=== PATIENT | male | born 1985 | race Caucasian/White ===

== ENCOUNTER 2024-08-06 11:51 | Day surgery (SDC) | payer OTHER, SELFPAY ==
[2024-08-06] VITALS (12 sets, daily range): BP systolic 127–160; BP diastolic 72–97; BMI 28.2
--- NOTE | 2024-08-06 08:10 | ED.GENMED ---
History of Present Illness
<Kade Rios, DO - Last Filed: 08/06/24 11:17>
General
Chief Complaint: Abdominal Symptoms
Time Seen by Provider: 08/06/24 07:45
<Libertad Larkin MD, Resident - Last Filed: 08/06/24 13:25>
History of Present Illness
History of Present Illness:
This is a 39-year-old male who presents to the ED complaining of epigastric pain that started at 230 this a.m. Patient reports pain is an 8 out of 10 that does not radiate anywhere. He reports it is a sharp pain. He reports nausea, but denies
vomiting. He denies fever, chills. Movement makes it worse, nothing makes it better. He used Pepto this morning but symptoms did not resolve. He denies diarrhea, denies constipation. He has had no abdominal surgeries. His last meal was 5 PM
yesterday. He denies fever, chills.
Past History
<Kade Rios, DO - Last Filed: 08/06/24 11:17>
Past History
ED Past Medical History: None
ED Past Surgical History: None
<Libertad Larkin MD, Resident - Last Filed: 08/06/24 13:25>
Social History
Tobacco: Non-smoker
Alcohol: None
Drug: None
Phy Exam
<Libertad Larkin MD, Resident - Last Filed: 08/06/24 13:25>
General Physical Exam
General Presentation: well appearing and moderate distress
General Mental: alert
Cardiovascular Exam
Cardiovascular Exam: regular rate/rhythm, no edema and no murmur
Pulmonary Exam
Pulmonary Exam: lungs clear and no respiratory distress
Gastrointestinal Exam
Gastrointestinal Exam: normal bowel sounds, soft, non distended and tender (Tenderness in epigastric region on palpation of abdomen)
Neurological Exam
Neurological Exam: alert and oriented x3
Skin Exam
Skin Exam: normal color
Psychiatric Exam
Psychiatric Exam: normal mood/affect
Course
<Kade Rios, DO - Last Filed: 08/06/24 11:17>
Orders/Labs/Results
Orders:
Orders
08/06/24 Breakfast
NPO
Allow oral meds: Yes
Allow clear liquids: No
08/06/24 07:37
Electrocardiogram (*1) Urgent
Reason for Study: Abdominal Pain
EKG- Treatment ONCE
08/06/24 08:01
Ondansetron Injectable [Zofran] 4 mg IV NOW STA
08/06/24 08:07
Morphine Sulfate 4 mg IV NOW STA
Pantoprazole [Protonix IV] 40 mg IV NOW STA
08/06/24 08:08
US Abdomen Complete/Upper Urgent
Comment:
Reason For Exam: abdominal pain
08/06/24 08:09
Lactated Ringers [Lr] 1,000 ml IV BOLUS
08/06/24 08:12
IV Insert/Care/Rem.- Treatment PRN
08/06/24 08:35
Complete Blood Count/With Diff Urgent
Comprehensive Metabolic Panel Urgent
Lipase Urgent
08/06/24 10:44
Morphine Sulfate 4 mg .ROUTE .STK-MED ONE
08/06/24 10:51
Morphine Sulfate 4 mg IV NOW STA
08/06/24 10:52
Urinalysis Reflex To Culture Urgent
Date Specimen was Collected: 08/06/24
Time Specimen was Collected: 10:50
08/06/24 10:53
HYDROmorphone [Dilaudid] 0.25 mg IV PACU-Q5MPRN PRN
HYDROmorphone [Dilaudid] 0.5 mg IV PACU-Q5MPRN PRN
Meperidine [Demerol] 12.5 mg IV PACU-Q5MPRN PRN
Ondansetron Injectable [Zofran] 4 mg IV PACU-ONCEPRN PRN
Prochlorperazine [Compazine] 5 mg IV PACU-ONCEPRN PRN
08/06/24 10:54
Notify MD As Directed
Notify physician if: for SDS patients with known or suspected sleep obstructive sleep apnea, monitor in the
PACU.
Notify MD for any apneic/desaturation episodes
O2 Therapy [RESP] Urgent
Titrate/Wean O2 to maintain O2 sat greater than (%): 92
Special Instructions: -Provide supplemental oxygen to achieve O2 sat of 92% or greater.
-After 15 min, may wean O2 and discontinue if patient is able to maintain O2 sat of 92%
or greater during recovery period.
If patient is a discharge home, without oxygen therapy, notify anestheiologist if
unable to maintain O2 SAT of 92% or greater on room air for MD clearance.
08/06/24 10:56
HYDROmorphone [Dilaudid] 0.25 mg IV PACU-Q5MPRN PRN
HYDROmorphone [Dilaudid] 0.5 mg IV PACU-Q5MPRN PRN
Meperidine [Demerol] 12.5 mg IV PACU-Q5MPRN PRN
Ondansetron Injectable [Zofran] 4 mg IV PACU-ONCEPRN PRN
Prochlorperazine [Compazine] 5 mg IV PACU-ONCEPRN PRN
Notify MD As Directed
Notify physician if: for SDS patients with known or suspected sleep obstructive sleep apnea, monitor in the
PACU.
Notify MD for any apneic/desaturation episodes
O2 Therapy [RESP] Urgent
Titrate/Wean O2 to maintain O2 sat greater than (%): 92
Special Instructions: -Provide supplemental oxygen to achieve O2 sat of 92% or greater.
-After 15 min, may wean O2 and discontinue if patient is able to maintain O2 sat of 92%
or greater during recovery period.
If patient is a discharge home, without oxygen therapy, notify anestheiologist if
unable to maintain O2 SAT of 92% or greater on room air for MD clearance.
08/06/24 11:00
Normosol (Mult Electrolytes) [Normosol-R/Plasmalyte-A] 1,000 ml IV PER PROTOCOL
Normosol (Mult Electrolytes) [Normosol-R/Plasmalyte-A] 1,000 ml IV PER PROTOCOL
08/06/24 11:11
HYDROmorphone [Dilaudid] 0.5 mg IV NOW STA
HYDROmorphone [Dilaudid] 0.5 mg IV NOW STA
08/06/24 11:12
Sequential Compression Device [Pneumatic Compression Sleeves] As Directed
Type: Knee high
DX Deep Vein Thrombosis Video Routine
08/06/24 11:16
CefoTEtan [Cefotan] 2,000 mg IV NOW STA
08/06/24 11:39
Sterile Water [Sterile Water For Injection] 10 ml IV NOW STA
08/06/24 11:45
Normosol (Mult Electrolytes) [Normosol-R/Plasmalyte-A] 1,000 ml IV PER PROTOCOL
08/06/24 11:52
HYDROmorphone [Dilaudid] 0.25 mg IV PACU-Q5MPRN PRN
HYDROmorphone [Dilaudid] 0.5 mg IV PACU-Q5MPRN PRN
Meperidine [Demerol] 12.5 mg IV PACU-Q5MPRN PRN
Ondansetron Injectable [Zofran] 4 mg IV PACU-ONCEPRN PRN
Prochlorperazine [Compazine] 5 mg IV PACU-ONCEPRN PRN
08/06/24 11:59
Bupivacaine 0.5%Pf/Epinephrin [Sensorcain-Mpf Epi 0.5%-0.0005] 30 ml .ROUTE .STK-MED ONE
Iohexol [Omnipaque] 50 ml .ROUTE .STK-MED ONE
08/06/24 12:24
Fentanyl Citrate/Pf [Sublimaze] 100 mcg .ROUTE .STK-MED ONE
Midazolam HCl [Versed] 2 mg .ROUTE .STK-MED ONE
08/06/24 12:47
Phenylephrine HCl/0.9% NaCl [Desmond-Synephrine] 1,000 mcg .ROUTE .STK-MED ONE
08/06/24 12:53
OR Pathology Routine
Pre-Operative Diagnosis: ACUTE CHOLECYSTITIS
Post-Operative Diagnosis: SAME
Operative Procedure: LAP RUPAL,CHOLANG
Surgeon: ANABELL
Circulating Nurse: SLADE
Specimen Type: GALLBLADDER
08/06/24 13:05
HYDROmorphone [Dilaudid] 1 mg .ROUTE .STK-MED ONE
08/06/24 13:16
Dexamethasone Sod Phosphate [Decadron] 20 mg .ROUTE .STK-MED ONE
Lidocaine HCl/Pf [Xylocaine-Mpf 1% Vial] 50 mg .ROUTE .STK-MED ONE
Ondansetron Injectable [Zofran] 4 mg .ROUTE .STK-MED ONE
Propofol [Diprivan] 20 ml .ROUTE .STK-MED
Rocuronium Perris [Rocuronium] 50 mg .ROUTE .STK-MED ONE
Abnormal Lab Results
08/06/24
08:35
WBC 12.3 H 10^3/uL
(4.8-10.8)
Absolute Neuts (auto) 10.9 H 10^3/uL
(1.4-6.5)
Absolute Lymphs (auto) 0.9 L 10^3/uL
(1.2-3.4)
Neutrophils % 88.6 H %
(42.2-75.2)
Lymphocytes % 7.2 L %
(20.5-51.1)
Glucose 128 H mg/dl
(70-99)
08/06/24 08:35
08/06/24 08:35
Vital Signs
Initial and Last Documented VS:
Initial Vital Signs
Temp Pulse Resp BP Pulse Ox
97.7 F 60 16 158/97 98
08/06/24 07:37 08/06/24 07:37 08/06/24 07:37 08/06/24 07:37 08/06/24 07:37
Last Documented Vital Signs
Temp Pulse Resp BP Pulse Ox
97.7 F 76 20 146/72 100
08/06/24 07:37 08/06/24 10:45 08/06/24 10:45 08/06/24 10:01 08/06/24 10:45
<Libertad Larkin MD, Resident - Last Filed: 08/06/24 13:25>
Orders/Labs/Results
Orders:
Orders
08/06/24 Breakfast
NPO
Allow oral meds: Yes
Allow clear liquids: No
08/06/24 07:37
Electrocardiogram (*1) Urgent
Reason for Study: Abdominal Pain
EKG- Treatment ONCE
08/06/24 08:01
Ondansetron Injectable [Zofran] 4 mg IV NOW STA
08/06/24 08:07
Morphine Sulfate 4 mg IV NOW STA
Pantoprazole [Protonix IV] 40 mg IV NOW STA
08/06/24 08:08
US Abdomen Complete/Upper Urgent
Comment:
Reason For Exam: abdominal pain
08/06/24 08:09
Lactated Ringers [Lr] 1,000 ml IV BOLUS
08/06/24 08:12
IV Insert/Care/Rem.- Treatment PRN
08/06/24 08:35
Complete Blood Count/With Diff Urgent
Comprehensive Metabolic Panel Urgent
Lipase Urgent
08/06/24 10:44
Morphine Sulfate 4 mg .ROUTE .STK-MED ONE
08/06/24 10:51
Morphine Sulfate 4 mg IV NOW STA
08/06/24 10:52
Urinalysis Reflex To Culture Urgent
Date Specimen was Collected: 08/06/24
Time Specimen was Collected: 10:50
08/06/24 10:53
HYDROmorphone [Dilaudid] 0.25 mg IV PACU-Q5MPRN PRN
HYDROmorphone [Dilaudid] 0.5 mg IV PACU-Q5MPRN PRN
Meperidine [Demerol] 12.5 mg IV PACU-Q5MPRN PRN
Ondansetron Injectable [Zofran] 4 mg IV PACU-ONCEPRN PRN
Prochlorperazine [Compazine] 5 mg IV PACU-ONCEPRN PRN
08/06/24 10:54
Notify MD As Directed
Notify physician if: for SDS patients with known or suspected sleep obstructive sleep apnea, monitor in the
PACU.
Notify MD for any apneic/desaturation episodes
O2 Therapy [RESP] Urgent
Titrate/Wean O2 to maintain O2 sat greater than (%): 92
Special Instructions: -Provide supplemental oxygen to achieve O2 sat of 92% or greater.
-After 15 min, may wean O2 and discontinue if patient is able to maintain O2 sat of 92%
or greater during recovery period.
If patient is a discharge home, without oxygen therapy, notify anestheiologist if
unable to maintain O2 SAT of 92% or greater on room air for MD clearance.
08/06/24 10:56
HYDROmorphone [Dilaudid] 0.25 mg IV PACU-Q5MPRN PRN
HYDROmorphone [Dilaudid] 0.5 mg IV PACU-Q5MPRN PRN
Meperidine [Demerol] 12.5 mg IV PACU-Q5MPRN PRN
Ondansetron Injectable [Zofran] 4 mg IV PACU-ONCEPRN PRN
Prochlorperazine [Compazine] 5 mg IV PACU-ONCEPRN PRN
Notify MD As Directed
Notify physician if: for SDS patients with known or suspected sleep obstructive sleep apnea, monitor in the
PACU.
Notify MD for any apneic/desaturation episodes
O2 Therapy [RESP] Urgent
Titrate/Wean O2 to maintain O2 sat greater than (%): 92
Special Instructions: -Provide supplemental oxygen to achieve O2 sat of 92% or greater.
-After 15 min, may wean O2 and discontinue if patient is able to maintain O2 sat of 92%
or greater during recovery period.
If patient is a discharge home, without oxygen therapy, notify anestheiologist if
unable to maintain O2 SAT of 92% or greater on room air for MD clearance.
08/06/24 11:00
Normosol (Mult Electrolytes) [Normosol-R/Plasmalyte-A] 1,000 ml IV PER PROTOCOL
Normosol (Mult Electrolytes) [Normosol-R/Plasmalyte-A] 1,000 ml IV PER PROTOCOL
08/06/24 11:11
HYDROmorphone [Dilaudid] 0.5 mg IV NOW STA
HYDROmorphone [Dilaudid] 0.5 mg IV NOW STA
08/06/24 11:12
Sequential Compression Device [Pneumatic Compression Sleeves] As Directed
Type: Knee high
DX Deep Vein Thrombosis Video Routine
08/06/24 11:16
CefoTEtan [Cefotan] 2,000 mg IV NOW STA
08/06/24 11:39
Sterile Water [Sterile Water For Injection] 10 ml IV NOW STA
08/06/24 11:45
Normosol (Mult Electrolytes) [Normosol-R/Plasmalyte-A] 1,000 ml IV PER PROTOCOL
08/06/24 11:52
HYDROmorphone [Dilaudid] 0.25 mg IV PACU-Q5MPRN PRN
HYDROmorphone [Dilaudid] 0.5 mg IV PACU-Q5MPRN PRN
Meperidine [Demerol] 12.5 mg IV PACU-Q5MPRN PRN
Ondansetron Injectable [Zofran] 4 mg IV PACU-ONCEPRN PRN
Prochlorperazine [Compazine] 5 mg IV PACU-ONCEPRN PRN
08/06/24 11:59
Bupivacaine 0.5%Pf/Epinephrin [Sensorcain-Mpf Epi 0.5%-0.0005] 30 ml .ROUTE .STK-MED ONE
Iohexol [Omnipaque] 50 ml .ROUTE .STK-MED ONE
08/06/24 12:24
Fentanyl Citrate/Pf [Sublimaze] 100 mcg .ROUTE .STK-MED ONE
Midazolam HCl [Versed] 2 mg .ROUTE .STK-MED ONE
08/06/24 12:47
Phenylephrine HCl/0.9% NaCl [Desmond-Synephrine] 1,000 mcg .ROUTE .STK-MED ONE
08/06/24 12:53
OR Pathology Routine
Pre-Operative Diagnosis: ACUTE CHOLECYSTITIS
Post-Operative Diagnosis: SAME
Operative Procedure: LAP RUPAL,CHOLANG
Surgeon: ANABELL
Circulating Nurse: SLADE
Specimen Type: GALLBLADDER
08/06/24 13:05
HYDROmorphone [Dilaudid] 1 mg .ROUTE .STK-MED ONE
08/06/24 13:16
Dexamethasone Sod Phosphate [Decadron] 20 mg .ROUTE .STK-MED ONE
Lidocaine HCl/Pf [Xylocaine-Mpf 1% Vial] 50 mg .ROUTE .STK-MED ONE
Ondansetron Injectable [Zofran] 4 mg .ROUTE .STK-MED ONE
Propofol [Diprivan] 20 ml .ROUTE .STK-MED
Rocuronium Perris [Rocuronium] 50 mg .ROUTE .STK-MED ONE
Abnormal Lab Results
08/06/24
08:35
WBC 12.3 H 10^3/uL
(4.8-10.8)
Absolute Neuts (auto) 10.9 H 10^3/uL
(1.4-6.5)
Absolute Lymphs (auto) 0.9 L 10^3/uL
(1.2-3.4)
Neutrophils % 88.6 H %
(42.2-75.2)
Lymphocytes % 7.2 L %
(20.5-51.1)
Glucose 128 H mg/dl
(70-99)
08/06/24 08:35
08/06/24 08:35
Vital Signs
Initial and Last Documented VS:
Initial Vital Signs
Temp Pulse Resp BP Pulse Ox
97.7 F 60 16 158/97 98
08/06/24 07:37 08/06/24 07:37 08/06/24 07:37 08/06/24 07:37 08/06/24 07:37
Last Documented Vital Signs
Temp Pulse Resp BP Pulse Ox
97.7 F 76 20 146/72 100
08/06/24 07:37 08/06/24 10:45 08/06/24 10:45 08/06/24 10:01 08/06/24 10:45
<Libertad Larkin MD, Resident - Last Filed: 08/06/24 13:25>
MDM/Problems Addressed
MDM/Problems Addressed:
This is a 39-year-old male who presents with epigastric abdominal pain. Physical examination with tenderness in the epigastric region. Denies chest pain. EKG was unremarkable. Possible etiology gastritis versus pancreatitis versus gallbladder
pathology. Will start patient on for morphine, Zofran, 1L LR, Protonix. Evaluate with ultrasound abdomen
<Kade Rios DO - Last Filed: 08/06/24 11:17>
*Critical Care Note
Total Time (30-74mins, 75-104mins- exclusive of procedures): 31
comment:
Critical care statement: A total of 31 minutes of critical care time was provided for this patient. This includes management of unstable vital signs, evaluation of the patient at bedside, reviewing the patient's pertinent medical records, discussion
with consultants, review of old EKGs and review of pertinent medical records. This time with separate from time utilized to perform the aforementioned documented procedures
Patient taken directly to the OR for urgent cholecystectomy
ED Attending Note
<Kade Rios, - Last Filed: 08/06/24 11:17>
ED Attending Note
Patient seen and examined by attending physician: Yes
I performed a history and physical exam of patient and discussed management with resident, I reviewed resident's note and agree with documented findings and plan of care.: Yes
ED Attending Note:
I reviewed and agree with history and treatment plan by Libertad Larkin MD. My exam revealed
Physical Exam
General: Appears uncomfortable, afebrile
Neck: supple. no meningeal signs. normal posterior pharynx
Heart: s1/s2 regular rate and rhythm, no murmur. equal radial
pulses.
HEENT: Pupils equal round reactive to light, EOMI
Lungs: no acute respiratory distress. clear bilaterally
Abdomen: normal bowel sounds. Epigastric and right upper quadrant tenderness, no rebound or guarding. No CVAT
Neuro: alert and oriented. no focal neurological deficits
Skin: no rash
Psychiatric: well kept. interactive and cooperative
Extremities: no edema. no calf tenderness. negative homans. good distal pulses
39-year-old male with epigastric abdominal pain since 2:30 AM. Concern for pancreatitis versus cholecystitis. Labs and ultrasound pending. Will give 1 L LR, Zofran and morphine.
-
Portions of this chart may have been created with voice recognition software.� Occasional wrong word or��sound alike� substitutions may have occurred due to the inherent limitations of voice recognition software.
Discharge Plan
Departure
Patient Disposition: OR
Date of Disposition: 08/06/24
Time of Disposition: 11:16
Admit to: OR
Presentation/result/management discussed w/ accepting MD/DO: Benjamin Nguyen
Discharge Problem:
Acute cholecystitis
Interventions
Interventions:
*Risk Screen - Suicide Last Done: 08/06/24 07:37
*General Assessment Last Done: 08/06/24 10:55
*Neglect/Abuse Screening Last Done: 08/06/24 07:37
*ED- Fall Risk Assessment Last Done: 08/06/24 10:55
*ED COVID-19 Vaccine History Last Done: 08/06/24 10:55
*Nursing Disposition Last Done: 08/06/24 11:35
CR-Mpdctk-Uyjfxxwawo Assessment Last Done: 08/06/24 10:57
Discharge Date and Time
Discharge Date/Time: 08/06/24 11:35
[2024-08-06] MEDS: LR 1000 IV (08:38)
[2024-08-06] MEDS: ZOFRAN 4 MG IV (08:42)
[2024-08-06] MEDS: MORPHINE SULFATE 4 MG IV ×2 (08:42→10:51)
[2024-08-06] MEDS: PROTONIX IV 40 MG IV (08:42)
[2024-08-06 08:43] LABS: % Basophils 0.4 % (0-2); % Eosinophils 0.2 % (0-6); % Immature Granulocytes 0.3 % (0-0.5); % Lymphocytes 7.2 % (20.5-51.1); % Monocytes 3.3 % (1.7-9.3); % Neutrophils 88.6 % (42.2-75.2); Absolute Basophils 0.1 10^3/uL (0-0.2); Absolute Lymphocytes 0.9 10^3/uL (1.2-3.4); Absolute Monocytes 0.4 10^3/uL (0.1-0.6); Absolute Neutrophils 10.9 10^3/uL (1.4-6.5); Hematocrit 45.1 % (39.0-52.0); Hemoglobin 15.8 g/dL (13.0-18.0); Mean Corpuscular Hgb 29.2 pg (27.0-31.0); Mean Corpuscular Volume 83.4 fL (80.0-94.0); Mean Platelet Volume 8.3 fL (7.4-10.4); Nucleated Red Blood Cells % 0 % (-); Platelet Count 253 10^3/uL (130-400); Red Blood Cell Count 5.41 10^6/uL (4.70-6.10); Red Cell Dist. Width 11.8 % (11.5-14.5); White Blood Cell Count 12.3 10^3/uL (4.8-10.8)
[2024-08-06 08:59] LABS: ALT (SGPT) 28 U/L (0-50); AST (SGOT) 24 U/L (17-59); Albumin 4.9 g/dl (3.5-5.0); Alkaline Phosphatase 71 U/L (38-126); Blood Urea Nitrogen 17 mg/dl (9-20); Calcium 9.4 mg/dl (8.4-10.2); Carbon Dioxide 26 mmol/L (22-30); Chloride 104 mmol/L (98-107); Glucose 128 mg/dl (70-99); Potassium 4.9 mmol/L (3.5-5.1); Sodium 140 mmol/L (135-145); Total Bilirubin 0.6 mg/dl (0.2-1.3); Total Protein 7.7 g/dl (6.3-8.2); eGFR > 60.00
[2024-08-06 11:05] LABS: Urine Albumin Negative (Neg - Trace); Urine Bilirubin Negative (Negative); Urine Character Clear (Clear); Urine Color Yellow; Urine Glucose Negative (Negative); Urine Ketone Negative (Negative); Urine Leukocyte Negative (Negative); Urine Nitrite Negative (Negative); Urine Occult Blood Negative (Negative); Urine Urobilinogen Negative (Neg - 1+)
--- NOTE | 2024-08-06 11:09 | HPS.HSE ---
Addendum entered and electronically signed by Benjamin Nguyen MD 08/06/24 11:46:
I saw and examined the patient independently.
The [employer] Yarder's note was reviewed and I agree with the note, assessment and plan except where noted below.
Comment: This is a 39-year-old male [employer] who presents with a 1 day history of postprandial right upper quadrant pain. Ultrasound, blood work, exam all consistent with acute cholecystitis.
Will plan for a laparoscopic cholecystectomy in the OR today.
N.p.o., IV fluids, IV antibiotics ordered
Risks/Benefits/Alternatives, expected postoperative course and possible complications (bleeding, infection, injury to surrounding structures, acute/chronic pain) discussed at length. Patient wishes to proceed with surgery. All questions answered.
Consent obtained.
I spent 60 minutes in total for the care of this patient today including direct patient care and counseling, reviewing labs, imaging, coordination of care, as well as documentation.
Original Note:
Family Physician
-
Family Physician: Jazlyn Cruz
Chief Complaint
-
epigastric/ruq pain
History of Present Illness
39 yo male with a h/o left Achilles tendon repair who presents with epigastric pain radiating into the RUQ which awoke him from sleep early this am around 0230am. He notes last night, he was feeling well and had a meal of steak with mac and cheese.
He went to bed as usual but was awakened with severe pain which has persisted since that time. He denies n/v but notes he has had chills and sweats. He tried Pepto Bismol at home without relief. He notes that movement does not make it better or
worse. On exam, he is tender to the RUQ.
Medical History
Past Medical History
Past Medical History: Reports None
Past Surgical History: Reports Orthopedic (left achilles tendon repair)
Social History
Tobacco: Non-smoker
Alcohol: None
Personal:
Living: With Family
Employment: Employed ([employer], [employer] fighter pilot)
Family History
Family History: Not pertinent
Allergies / Home Medications
Allergies reflects when Allergies were last updated in [facility].
Home Medications with original date entered in [facility]
Allergy/Medication List:
Patient Allergies
Allergy/AdvReac Type Severity Reaction Status Date / Time
No Known Allergies Allergy Verified 08/06/24 07:42
If medication reconciliation has not been performed, why?: Medication List N/A (no home meds)
Review of Systems
-
History Source: Patient and Family
A 12 point ROS was completed and negative except as noted: Yes
Physical Exam
Vital Signs
Vital Signs
Temp Pulse Resp BP Pulse Ox
97.7 F 76 20 146/72 100
08/06/24 07:37 08/06/24 10:45 08/06/24 10:45 08/06/24 10:01 08/06/24 10:45
Physical Exam
General: Well Developed and Well Nourished; No Comfortable
HEENT: Moist mucous membranes
Respiratory: Non Labored Respirations
GI: Soft, Non Distended and Tender (RUQ)
Skin: Warm and Dry
Neuro: Awake, Alert and AO x 3
Psych: Calm
Laboratory Results
-
08/06/24 08:35
08/06/24 08:35
Laboratory Results
Total Bilirubin 0.6 mg/dl (0.2-1.3) 08/06/24 08:35
AST 24 U/L (17-59) 08/06/24 08:35
ALT 28 U/L (0-50) 08/06/24 08:35
Alkaline Phosphatase 71 U/L (38-126) 08/06/24 08:35
Data Reviewed
-
Ultrasound: Image Personally Visualized and interpreted, Report Reviewed by me, Discussed with Physician, Discussed with Patient and Discussed with Family
Lab Data: Labs Reviewed by me, Discussed with Physician, Discussed with Patient and Discussed with Family
Old Records: Reviewed
Impression/Plan
-
IMPRESSION:
39 yo healthy male presenting with RUQ pain which awakened him from sleep early this morning after a high fat meal last night. US consistent with acute calculous cholecystitis as is history and physical exam. LFTs WNL, mildly elevated leukocytosis.
Afebrile with stable vital signs.
PLAN:
NPO for surgery today for laparoscopic cholecystectomy
Cefotetan 2gm preop
Analgesics prn
SCDs for VTE ppx perioperatively
--- NOTE | 2024-08-06 11:43 | W.SUR.PREOP ---
Pre-Operative Surgical Note
-
I have examined this patient prior to the performance of the scheduled procedure.
The patient's condition is unchanged from the time of the current History and
Physical and the patient is able to undergo the scheduled procedure.
[2024-08-06 11:57] LABS: Lipase 95 U/L (23-300)
--- NOTE | 2024-08-06 13:59 | W.IMMPOSTOP ---
Surgical Immed Post Op Note
-
Primary Surgeon: Benjamin Nguyen MD
Assisting Surgeon: None
Pre-op Diagnosis: Acute cholecystitis
Post-op Diagnosis: Same
Procedure Performed: Laparoscopic cholecystectomy with cholangiogram
Anesthesia Type: General
Specimen / Cultures: Gallbladder and contents
Estimated Blood Loss: 7 cc
Complications: None
Operative Findings: Distended and inflamed gallbladder with fairly thick sticky adhesions at the infundibulum that were taken down with blunt and electrocautery dissection. The gallbladder was decompressed with an aspiration needle prior to
starting our dissection. Critical view of safety was obtained prior to a cholangiogram which demonstrated the cystic duct coming off of an isolated right posterior hepatic duct. Otherwise the biliary anatomy was normal and there was no filling
defects. Prior to the start of the cholangiogram a cholesterol gallstone was milked out of the cystic duct. The duct was ligated with a clip followed by a 0 PDS Endoloop. There was some spillage of bile but no stones.
POST OP PLAN:
Imaging: None
Labs: Routine AM
Diet: Advance to Regular as tolerated
Analgesia: Tylenol 650mg q6 Yvonne, Chela 5mg q6 PRN, Dilaudid 0.5mg q2h PRN
Neuro/vascular checks: q4h
AC/AP: Hold Therapeutic AC, Ok for DVT PPx
Activity: Ad Betty
Wound/Incisions/Drains: Routine
Abx: Will continue antibiotics while in the hospital
Dispo: RNF, anticipate discharge home tomorrow.
--- NOTE | 2024-08-06 14:05 | OR.RPT ---
Operative Report
Operative Report
Patient Name: Kashmir Hankins
: 1985
Date of Operation: 08/06/2024
Preoperative Diagnosis: Acute cholecystitis
Postoperative Diagnosis: Same
Procedure(s):
Laparoscopic Cholecystectomy with Cholangiogram
Surgeon(s):
Dr. Nguyen
Sports Recruiter(s):
ADARSH Marino
Anesthesia: General
Estimated Blood Loss: 7 cc
Urine Output: None
Drains/Lines/Implants: None
Specimens:
1. Gallbladder and contents
HPI/Surgical Indications:
This is a 39-year-old male who presents with 1 day of postprandial right upper quadrant abdominal pain. Exam, labs and imaging are consistent with acute cholecystitis. Risks/Benefits/Alternatives were discussed at length, and the patient agreed to
proceed with surgery.
Operative Findings: Distended and inflamed gallbladder with fairly thick sticky adhesions at the infundibulum that were taken down with blunt and electrocautery dissection. The gallbladder was decompressed with an aspiration needle prior to
starting our dissection. Critical view of safety was obtained prior to a cholangiogram which demonstrated the cystic duct coming off of an isolated right posterior hepatic duct. Otherwise the biliary anatomy was normal and there was no filling
defects. Prior to the start of the cholangiogram a cholesterol gallstone was milked out of the cystic duct. The duct was ligated with a clip followed by a 0 PDS Endoloop. There was some spillage of bile but no stones.
Procedure Description:
The patient was brought to the Operating Room and placed in the supine position with one arm tucked. Following uneventful induction of general endotracheal anesthesia, an orogastric tube was placed. The abdomen was prepped and draped in the usual
sterile fashion. A timeout was performed confirming the procedure, consent, and that IV antibiotics were infused and sequential compression devices were confirmed to be on. The abdomen was entered using an infraumbilical open Riaz technique with
a 12 mm balloon-tipped trocar. Pneumoperitoneum to 15 mmHg pressure was obtained without difficulty and we confirmed that no injury had occurred during our entry. The patient was positioned in reverse Trendelenberg and rotated with the right side
up slightly. Three (3) 5mm trocars were then placed along the right subcostal margin. The gallbladder was emptied using a decompressing needle through the fundus of the gallbladder with evacuation of hydrops before A locking grasping forceps was
placed on the fundus of the gallbladder where it was then retracted cephalad and to the right. Using appropriate grasping instruments, the peritoneum overlying the triangle of Calot was incised and extended superiorly on both the anterior and
posterior gallbladder bae. The infundibulum was dissected off the cystic plate. The cystic triangle was dissected until a critical view of safety was achieved. The cystic artery was medialized, dissected and controlled with 2 proximal clips and 1
distal. The cystic duct/gallbladder junction in turn was identified, dissected circumferentially and a clip was placed. A ductotomy was made and a cholangiocatheter on an Falcon clamp was inserted into the cystic duct, after milking 1 cholesterol
gallstone out of the duct. A C-arm was draped and brought into the field. An intra-operative cholangiogram was performed and was noted to have:
No filling defects in the biliary tree
No significant biliary dilation
Brisk flow of contrast into the duodenum
A cystic duct coming off of an isolated right posterior hepatic duct.
The catheter was then removed and the cystic duct was controlled with a clip followed by a 0 PDS Endoloop. After ensuring both the artery and duct were divided, the gallbladder was freed from the liver using electrocautery. There was some spillage
of bile, but no spillage of stones. The gallbladder bed was inspected and excellent hemostasis was obtained. The gallbladder was extracted through the 12 mm trocar site using an endocatch bag. The abdomen was again irrigated and excellent
hemostasis was assured. All remaining trocars were then removed and the pneumoperitoneum was evacuated. The 12 mm trocar site was closed using 0 PDS suture. All trocar sites were closed at the skin level using 4-0 Monocryl followed by Dermabond.
Overall, the patient tolerated the procedure well and was taken to the Recovery Room postoperatively in stable condition.
I was the attending physician and performed the procedure with assistance from the DESK MAKER above. I was present for all portions of the case, excluding skin closure.
Benjamin Nguyen MD
[2024-08-06] MEDS: NSS 1000 IV (16:42)
[2024-08-06 17:25] LABS: Glucose - Point of Care 130 mg/dl (70-99)
[2024-08-06] MEDS: CEFOTAN 2000 MG IV (23:04)
[2024-08-06] MEDS: STERILE WATER FOR INJECTION 10 ML IV (23:04)
[2024-08-07 05:53] LABS: Hematocrit 42.8 % (39.0-52.0); Hemoglobin 15.2 g/dL (13.0-18.0); Mean Corp Hgb Conc. 35.5 g/dL (33.0-37.0); Mean Corpuscular Hgb 29.2 pg (27.0-31.0); Mean Corpuscular Volume 82.3 fL (80.0-94.0); Mean Platelet Volume 8.7 fL (7.4-10.4); Platelet Count 277 10^3/uL (130-400); Red Cell Dist. Width 11.9 % (11.5-14.5); White Blood Cell Count 14.4 10^3/uL (4.8-10.8)
[2024-08-07 06:17] LABS: ALT (SGPT) 46 U/L (0-50); AST (SGOT) 35 U/L (17-59); Albumin 4.3 g/dl (3.5-5.0); Alkaline Phosphatase 67 U/L (38-126); Blood Urea Nitrogen 11 mg/dl (9-20); Calcium 9.1 mg/dl (8.4-10.2); Carbon Dioxide 23 mmol/L (22-30); Chloride 107 mmol/L (98-107); Estimated Creatinine Clearance 118 ml/min; Glucose 109 mg/dl (70-99); Potassium 4.4 mmol/L (3.5-5.1); Sodium 140 mmol/L (135-145); Total Bilirubin 0.7 mg/dl (0.2-1.3); Total Protein 6.9 g/dl (6.3-8.2); eGFR > 60.00
[2024-08-07] MEDS: NSS 1000 IV (07:21)
[2024-08-07 07:24] VITALS: BP 133/78
--- NOTE | 2024-08-07 09:35 | W.PN.GS2 ---
Today's Communication / Plan
-
Dispo planning
Assessment / Plan
-
This is a 39-year-old male status post laparoscopic cholecystectomy. Doing well, expected postoperative course.
Will discharge home today.
Time Spent
Total Time Spent with Patient (in minutes): 20
Subjective Data
-
Date of Service: August 07, 2024
Interval Events:
No acute events overnight. Slept well. Pain Controlled. Denies Nausea/Vomiting, +bowel function. Tolerating diet.
Objective Data
-
Intake and Output
08/06/24 08/07/24 08/08/24
06:59 06:59 06:59
Intake Total 630 / 630 480 / 480
Balance 630 / 630 480 / 480
Intake:
Oral fluids 480 / 480 480 / 480
IV fluids (Total) 150 / 150
normosol 150 / 150
Other:
Number of approximated MODERATE 5
amounts of urine
Vital Signs
Temp Pulse Resp BP Pulse Ox
97.9 F 88 17 133/78 97
08/07/24 07:24 08/07/24 07:24 08/07/24 07:24 08/07/24 07:24 08/07/24 07:24
Lab Results
08/07/24 05:15
08/07/24 05:15
Calcium 9.1 mg/dl (8.4-10.2) 08/07/24 05:15
Total Bilirubin 0.7 mg/dl (0.2-1.3) 08/07/24 05:15
AST 35 U/L (17-59) 08/07/24 05:15
ALT 46 U/L (0-50) 08/07/24 05:15
Alkaline Phosphatase 67 U/L (38-126) 08/07/24 05:15
Total Protein 6.9 g/dl (6.3-8.2) 08/07/24 05:15
Albumin 4.3 g/dl (3.5-5.0) 08/07/24 05:15
Physical Exam
-
GENERAL/NEURO: Awake, Alert, no distress
CHEST: Unlabored breathing on RA
ABDOMEN: Soft, Non-Tender, Non-Distended, incisions clean dry and intact. Some bruising around the umbilical port site.
Patient has a egan catheter: No
Patient has a central line: No
== END 2024-08-07 10:14 | disposition home or self-care (01) ==
LOC: SDS 11:51
PROVIDERS: Registered Nurse; Student in an Organized Health Care Education/Training Program; ATTENDING PHYSICIAN Surgery; EMERGENCY PHYSICIAN Emergency Medicine; FAMILY PHYSICIAN Physician Assistant
DX: K80.10 Calculus of gallbladder with chronic cholecystitis without obstruction (principal)
CPT/HCPCS: 47563; 88304; 74300; 76000; 76700; 80053; 81003; 82962; 83690; 85025; 85027; 93005; 99291; A4300